=== PATIENT | male | born 1935 | race Hispanic/Latino ===

== ENCOUNTER 2018-01-19 08:50 | Day surgery (SDC) | payer OTHER, MEDICARE ==
[~2018-01-19] VITALS: Ht 160 cm; Wt 65.9 kg
[~2018-01-19 08:50] MED LIST: ATOR10 PO; FISH1CAP63 PO; FOLI-44 PO; MIRA25TA PO; OMEP40CA37 PO; OXYM15SP NS; SODIUM CHLORIDE 0.9% 1000ML 1,000 ML IV ONE
[2018-01-19 09:41] VITALS: BP 149/75
[2018-01-19] MEDS ORDERED: PROPOFOL 10 MG/ML 20ML VIAL IV ONE (09:51)
[2018-01-19] MEDS ORDERED: FENTANYL CITRATE PF 50 MCG/1 ML 2ML VIAL ONE (09:51)
[2018-01-19 09:59] VITALS: BP 98/52
== END 2018-01-19 10:35 | disposition home or self-care (01) ==
LOC: DAH 08:50 → ENDO 08:50
PROVIDERS: ATTEND Internal Medicine Gastroenterology
DX: K44.9 Diaphragmatic hernia without obstruction or gangrene (principal); Q79.0 Congenital diaphragmatic hernia; E78.5 Hyperlipidemia, unspecified; N40.0 Benign prostatic hyperplasia without lower urinary tract symptoms; Z98.890 Other specified postprocedural states; N18.9 Chronic kidney disease, unspecified; Z85.46 Personal history of malignant neoplasm of prostate; Z79.899 Other long term (current) drug therapy; N32.81 Overactive bladder
CPT/HCPCS: 43235; A4606; J2704; J3010; J7030

== ENCOUNTER → 2018-04-12 | Outpatient (CLI) | payer OTHER, MEDICARE ==
[~2018-04-12] MED LIST changes: -OMEP40CA37 PO; -SODIUM CHLORIDE 0.9% 1000ML 1,000 ML IV ONE
== END | disposition home or self-care (01) ==
LOC: SHCH 13:33
PROVIDERS: ATTEND Internal Medicine Cardiovascular Disease
DX: I73.9 Peripheral vascular disease, unspecified (principal); M79.1 Myalgia
CPT/HCPCS: 93922